=== PATIENT | female | born 1965 | race Caucasian/White ===

== ENCOUNTER 2023-08-04 06:14 | Outpatient (RCR) | payer OTHER, SELFPAY | END 2023-08-04 23:59 | disposition home or self-care (01) | LOC: RPT 06:14 | PROVIDERS: ATTENDING PHYSICIAN Orthopaedic Surgery Hand Surgery; FAMILY PHYSICIAN Nurse Practitioner Obstetrics & Gynecology | DX: Z47.89 Encounter for other orthopedic aftercare (principal); M75.102 Unspecified rotator cuff tear or rupture of left shoulder, not specified as traumatic; Z73.6 Limitation of activities due to disability; M62.81 Muscle weakness (generalized) | CPT/HCPCS: 97010; 97110; 97140; 97162 ==

== ENCOUNTER 2023-09-09 06:28 | Outpatient (RCR) | payer OTHER, SELFPAY | END 2023-09-09 23:59 | disposition home or self-care (01) | LOC: RPT 06:28 | PROVIDERS: ATTENDING PHYSICIAN Orthopaedic Surgery Hand Surgery; FAMILY PHYSICIAN Nurse Practitioner Obstetrics & Gynecology | DX: M75.102 Unspecified rotator cuff tear or rupture of left shoulder, not specified as traumatic (principal); Z98.890 Other specified postprocedural states; Z73.6 Limitation of activities due to disability | CPT/HCPCS: 97010; 97110; 97140 ==

== ENCOUNTER 2023-09-16 06:13 | Outpatient (RCR) | payer OTHER, SELFPAY | END 2023-09-16 08:07 | disposition home or self-care (01) | LOC: RPT 06:13 | PROVIDERS: ATTENDING PHYSICIAN Orthopaedic Surgery Hand Surgery; FAMILY PHYSICIAN Nurse Practitioner Obstetrics & Gynecology | DX: M75.102 Unspecified rotator cuff tear or rupture of left shoulder, not specified as traumatic (principal); Z98.890 Other specified postprocedural states; Z73.6 Limitation of activities due to disability | CPT/HCPCS: 97110; 97140 ==

== ENCOUNTER 2024-01-01 08:33 | Emergency (ER) | payer OTHER, SELFPAY ==
[2024-01-01 08:45] VITALS: BP 149/84
--- NOTE | 2024-01-01 09:18 | ED.GENMED ---
History of Present Illness
<Oliver Gipson MD - Last Filed: 01/01/24 11:52>
General
Chief Complaint: Fall
Source: patient
Exam Limitations: none
Time Seen by Provider: 01/01/24 08:52
Nursing documentation reviewed up to this point in time: agreed with
History of Present Illness
History of Present Illness:
58-year-old female with no reported chronic medical issues presents to the emergency room for evaluation after a trip and fall. Patient reports that she was running and was going over a gravel path and tripped and fell. She says that she landed on
her left side and struck her left face/jaw on the ground also caught her fall with left hand. She says she did not lose consciousness. She says that she sustained lacerations to the left forehead and cheek as well as to the left hand. Minor
abrasions to the knees. She was able to get up on her own and walk home but says that she has had a headache and some soreness in the left jaw as well as multiple lacerations which brought her to the emergency room. She denies any neck pain or
back pain. Denies any chest or abdominal pain. She has some soreness in the left hand where she has a laceration but denies any other pain in the extremities. She is unsure of her last tetanus shot.
Review of Systems
<Oliver Gipson MD - Last Filed: 01/01/24 11:52>
Review of Systems
All Other Systems: ROS reviewed and negative except as documented in HPI and ROS
Respiratory: Denies trouble breathing
Cardiac: Denies chest pain
ABD/GI: Denies abdominal pain, nausea or vomiting
: Denies flank pain
Musculoskeletal: Reports other (Hand pain); Denies joint pain, neck pain or back pain
Neurological: Reports dizzy and headache
Phy Exam
<Oliver Gipson MD - Last Filed: 01/01/24 11:52>
Physical Exam
Physical Exam:
General: Awake, alert, oriented x3; no acute distress
Head: Normocephalic, patient has laceration above the left eyebrow approximately 2 cm somewhat ragged edges but roughly linear; laceration left cheek curved approximately 2 cm; linear gaping laceration along the hypothenar eminence on the left hand
approximately 4 cm; mild tenderness along the left jaw but able to open and close jaw completely minimal pain
Eyes: Conjunctiva normal, pupils equal round and reactive to light bilaterally
Throat: Airway intact, handling secretions, no loose teeth, tongue atraumatic
Neck: Trachea midline, no cervical spine tenderness
Back: No signs of trauma to the back or flank and no tenderness of the thoracic or lumbar spine
Lungs: Breathing comfortably no distress
Heart: Regular rate; no chest wall tenderness
Abd: Soft, non distended, nontender
Neuro: No gross deficits
Skin: Lacerations to the left forehead and cheek, left hand
Extremities: Laceration to left hand, mild tenderness in the fifth metacarpal, near laceration; minor abrasions to the knees bilaterally, no swelling or joint effusion, full range of motion in bilateral lower extremities without pain
Scores
<Oliver Gipson MD - Last Filed: 01/01/24 11:52>
Heart Failure Risk
Heart Failure Risk Score: Not Applicable
Heart Score for Chest Pain Patients
STEMI patient?: Not applicable
Withdrawal Assessment of Alcohol
Withdrawal Assessment Completed?: Not applicable
Course
<Oliver Gipson MD - Last Filed: 01/01/24 11:52>
Orders/Labs/Results
Orders:
Orders
01/01/24 08:53
CT Head W/o Iv Contrast Urgent
Comment:
Reason For Exam: fall with headstrike, dizziness
01/01/24 09:17
CT Cervical Spine W/o Iv Contr Urgent
Comment:
Reason For Exam: fall with frontal headstrike
01/01/24 09:18
CR Hand - Left Min 3 Views Urgent
Comment:
Reason For Exam: fall with pain hypothenar eminence
01/01/24 10:14
Cephalexin Monohydrate [Keflex] 500 mg PO NOW STA
01/01/24 11:51
Tetanus/Diphth/Acelpertussis [Adacel] 0.5 ml .ROUTE .STK-MED ONE
01/01/24 12:00
Tetanus/Diphth/Acelpertussis [Adacel] 0.5 ml IM .ONCE ONE
Vital Signs
Initial and Last Documented VS:
Initial Vital Signs
Temp Pulse Resp BP Pulse Ox
98.4 F 62 18 149/84 100
01/01/24 08:45 01/01/24 08:45 01/01/24 08:45 01/01/24 08:45 01/01/24 08:45
Last Documented Vital Signs
Temp Pulse Resp BP Pulse Ox
98.4 F 62 18 149/84 100
01/01/24 08:45 01/01/24 08:45 01/01/24 10:00 01/01/24 08:45 01/01/24 08:45
<Gemma Naylor PA-C - Last Filed: 01/01/24 13:07>
Orders/Labs/Results
Orders:
Orders
01/01/24 08:53
CT Head W/o Iv Contrast Urgent
Comment:
Reason For Exam: fall with headstrike, dizziness
01/01/24 09:17
CT Cervical Spine W/o Iv Contr Urgent
Comment:
Reason For Exam: fall with frontal headstrike
01/01/24 09:18
CR Hand - Left Min 3 Views Urgent
Comment:
Reason For Exam: fall with pain hypothenar eminence
01/01/24 10:14
Cephalexin Monohydrate [Keflex] 500 mg PO NOW STA
01/01/24 11:51
Tetanus/Diphth/Acelpertussis [Adacel] 0.5 ml .ROUTE .STK-MED ONE
01/01/24 12:00
Tetanus/Diphth/Acelpertussis [Adacel] 0.5 ml IM .ONCE ONE
Vital Signs
Initial and Last Documented VS:
Initial Vital Signs
Temp Pulse Resp BP Pulse Ox
98.4 F 62 18 149/84 100
01/01/24 08:45 01/01/24 08:45 01/01/24 08:45 01/01/24 08:45 01/01/24 08:45
Last Documented Vital Signs
Temp Pulse Resp BP Pulse Ox
98.4 F 62 18 149/84 100
01/01/24 08:45 01/01/24 08:45 01/01/24 10:00 01/01/24 08:45 01/01/24 08:45
Procedures
<Oliver Gipson MD - Last Filed: 01/01/24 11:52>
Laceration Closure
Left Eye:
Status of Wound: dirty
Size of Wound in cm: 2
Description of Wound Edges: ragged
Preparation: cleaned with saline
Anesthesia: Topical-LET
Revision/Debridement: minor revision
Wound exploration: extensive cleaning of contaminated wound
Type of Closure: single layer closure
Skin Closure Material: 6-0 nylon
Left Cheek:
Status of Wound: dirty
Size of Wound in cm: 2
Description of Wound Edges: sharp
Preparation: cleaned with saline
Anesthesia: Topical-LET
Revision/Debridement: routine- no revision
Wound exploration: extensive cleaning of contaminated wound
Type of Closure: single layer closure
Skin Closure Material: 6-0 nylon
Left Hand:
Status of Wound: dirty
Size of Wound in cm: 4
Description of Wound Edges: sharp
Preparation: cleaned with saline
Anesthesia: 1% Lidocaine
Revision/Debridement: routine- no revision
Wound exploration: extensive cleaning of contaminated wound
Type of Closure: single layer closure
Skin Closure Material: 5-0 nylon
Splinting/Sling Placement
Left Hand:
Procedure completed by: Oliver Gipson MD
Pre-splint extermity exam: neurovascular intact
Type of splint: ulnar gutter
Splint material: fiberglass
Splint checked by provider?: Yes
Normal distal neurovascular exam?: Yes
<Gemma Naylor PA-C - Last Filed: 01/01/24 13:07>
Laceration Closure
Left Eye:
Description of Wound Edges: surrounded by abrasion
Anesthesia: 1% Lidocaine with epi
Revision/Debridement: debrided
Number of sutures: 7
Left Cheek:
Anesthesia: 1% Lidocaine with epi
Revision/Debridement: minor revision and debrided
Number of sutures: 5
Left Hand:
Status of Wound: imbedded foreign material
Revision/Debridement: routine- no revision
Wound exploration: foreign body removed
Number of sutures: 9
<Oliver Gipson MD - Last Filed: 01/01/24 11:52>
MDM/Problems Addressed
Differential Diagnosis Includes:
Traumatic head injury/jaw pain: Concussion, facial/jaw contusion, intracranial hemorrhage
Hand pain: Laceration, contusion, fracture
MDM/Problems Addressed:
58-year-old female presents for evaluation after trip and fall while running as described above. Multiple lacerations. She did have head trauma has mild headache also some jaw pain. Marginal hypertension otherwise normal vitals. Physical exam as
above. Will check CT head and cervical spine. Check x-ray of the left hand. Update tetanus. Irrigate and repair lacerations. Reassess after the above.
<Gemma Naylor PA-C - Last Filed: 01/01/24 13:07>
MDM/Problems Addressed
MDM/Problems Addressed:
58-year-old female presents for evaluation after trip and fall while running as described above. Multiple lacerations. She did have head trauma has mild headache also some jaw pain. Marginal hypertension otherwise normal vitals. Physical exam as
above. Will check CT head and cervical spine. Check x-ray of the left hand. Update tetanus. Irrigate and repair lacerations. Reassess after the above.\\
ralph naylor pa-c
i was able to repair the wounds after anesthetizing and extensive irrigation and debridement of gravel
well approximated
<Oliver Gipson MD - Last Filed: 01/01/24 11:52>
*Radiology
Radiology exam reviewed: preliminary read by ED provider and radiology read reviewed
*Pulse Oximetry
Patient hypoxic: no
*Critical Care Note
Total Time (30-74mins, 75-104mins- exclusive of procedures): Not Applicable
Data Reviewed
Source: patient and spouse
ED Attending Note
<Oliver Gipson MD - Last Filed: 01/01/24 11:52>
-
Portions of this chart may have been created with voice recognition software.� Occasional wrong word or��sound alike� substitutions may have occurred due to the inherent limitations of voice recognition software.
Discharge Plan
Departure
Patient Disposition: Home (Routine Discharge)
Date of Disposition: 01/01/24
Time of Disposition: 11:52
Patient with high blood pressure during this ER visit?: Yes
Discharge Problem:
Hand fracture, left, Laceration of eyebrow, Cheek laceration, Contusion of jaw, Laceration of hand
Instructions: Contusion (DC), Laceration Repair With Stitches (DC), Hand Fracture ED
Prescriptions:
New
cephalexin 500 mg capsule
500 mg PO QID 7 Days Qty: 28 0RF
No Action
acetaminophen 325 MG tablet
650 mg PO Q4HPRN PRN (Reason: mild pain) 0RF
oxycodone 5 MG tablet
5 mg PO Q4HPRN PRN (Reason: severe pain ) Qty: 12 0RF
ibuprofen 600 MG tablet
600 mg PO Q4HPRN PRN (Reason: mild pain) Qty: 1 0RF
Referrals:
Eze Chacon MD [Active] - Call in 1-3 days for appt (You should receive a call from the orthopedic office to set up an appointment; if you do not receive a call you should call the number above to schedule an appointment for next week.)
Emily Bridges PA-C [Family Provider] - Follow up in 5-7 days
Activity Restrictions/Additional Instructions:
You were seen in the emergency room after a fall. You had multiple lacerations that we repaired with stitches. You should have the stitches removed in 5 to 7 days. You can either follow-up here in the emergency room, go to your primary care
physician, or go to urgent care to have your stitches removed. If you notice any signs of infection including redness, drainage, swelling, increasing pain, fever you should return immediately to the emergency room to have these areas reassessed.
You were found to have a broken hand on the right. You are placed in a splint and you should follow-up with the orthopedist�they will reassess the area and decide if it needs to be fixed with surgery or if it can be treated with a cast. You are
prescribed a prophylactic antibiotic given that you had a cut on your hand as well�you should take this as prescribed. The orthopedic office should reach out to you to schedule an appointment�if you do not hear from them by the end of the day today
then you should call first thing Thursday to schedule an appointment for next week.
Thank you for visiting the Emergency Department at [facility].
1. Please schedule a follow up appointment as directed. Call first thing tomorrow morning to make an appointment.
2. If indicated, please take your medications as instructed and indicated on discharge paperwork.
3. If any of your symptoms do not improve, or persist, or become more severe within 6-12 hours, please return to the emergency department for further care.
4. Please return to the emergency department if you develop a headache, neck pain/stiffness, fever greater than 100.4F, chest pain, shortness of breath, persistent nausea, vomiting, slurred speech, difficulty walking, numbness/tingling, weakness,
signs of infection or any other symptoms that are worrisome to you.
Please call [phone] if you have any questions.
Interventions
Interventions:
*Risk Screen - Suicide Last Done: 01/01/24 08:45
*General Assessment Last Done: 01/01/24 08:45
*Neglect/Abuse Screening Last Done: 01/01/24 08:45
ED- Fall Risk Assessment Last Done: 01/01/24 12:15
*ED COVID-19 Vaccine History Last Done: 01/01/24 09:37
*Nursing Disposition Last Done: 01/01/24 12:15
ED-Musculoskeletal Assessment Last Done: 01/01/24 09:39
ED- Neurological Assessment Last Done: 01/01/24 09:38
ED-Skin Assessment Last Done: 01/01/24 09:39
Discharge Date and Time
Discharge Date/Time: 01/01/24 12:16
Print Language: PUERT[place] RICAN
[2024-01-01 09:41] VITALS: BMI 24.2
[2024-01-01] MEDS: ADACEL 0.5 ML IM (11:54)
[2024-01-01] MEDS: KEFLEX 500 MG PO (11:54)
== END 2024-01-01 12:16 | disposition home or self-care (01) ==
LOC: EMR 08:33
PROVIDERS: EMERGENCY PHYSICIAN Emergency Medicine; FAMILY PHYSICIAN Physician Assistant Medical
DX: S62.92XA Unspecified fracture of left hand, initial encounter for closed fracture (principal); S01.81XA Laceration without foreign body of other part of head, initial encounter; S01.422A Laceration with foreign body of left cheek and temporomandibular area, initial encounter; S61.422A Laceration with foreign body of left hand, initial encounter; S01.122A Laceration with foreign body of left eyelid and periocular area, initial encounter; S00.83XA Contusion of other part of head, initial encounter; R42 Dizziness and giddiness; M25.512 Pain in left shoulder; W01.0XXA Fall on same level from slipping, tripping and stumbling without subsequent striking against object, initial encounter; Y93.02 Activity, running; Y92.89 Other specified places as the place of occurrence of the external cause; Z23 Encounter for immunization; R03.0 Elevated blood-pressure reading, without diagnosis of hypertension
CPT/HCPCS: 99284; 12052; 12042; 29125; 90471; 70450; 72125; 73130; 90715

== ENCOUNTER → 2024-02-10 08:10 | Outpatient (REF) | payer OTHER, SELFPAY | LOC: WDC 08:10 | PROVIDERS: ATTENDING PHYSICIAN Obstetrics & Gynecology; FAMILY PHYSICIAN Physician Assistant Medical | DX: Z12.31 Encounter for screening mammogram for malignant neoplasm of breast (principal) | CPT/HCPCS: 77063; 77067 ==